=== PATIENT | female | born 1950 | race Two or more races ===

== ENCOUNTER 2017-06-05 14:52 | Emergency (ER) | payer OTHER ==
[~2017-06-05] VITALS: Ht 162.6 cm; Wt 80.0 kg
[~2017-06-05 14:52] MED LIST: DIOV160T60 PO; ESTR42.5V PV; NITR50CA27 PO; PRIL40CA PO; SYNT137T PO
[2017-06-05 15:03] VITALS: BP 129/70; PULSE 53; RESP 18; TEMP 97.8; O2SAT 99
[2017-06-05 15:51] VITALS: BP 168/81; PULSE 47; RESP 18; O2SAT 98
[2017-06-05] MEDS ORDERED: OMEP40CA2 PO (15:58)
[2017-06-05] MEDS ORDERED: LEVO.15 PO (15:58)
[2017-06-05] MEDS ORDERED: DIOV160T6 PO (15:58)
[2017-06-05] MEDS ORDERED: SODIUM CHLORIDE 0.9% FLUSH 10 ML FLUSH IVF PRN (16:00)
--- NOTE | 2017-06-05 16:51 | PD ---
HPI . High blood pressure Chief Complaint: Hypertension Time Seen by Provider: 15:44 Travel History International Travel<30 days: No Contact w/Intl Traveler<30days: No Traveled to known affect area: No History of Present Illness HPI This patient presents with chief complaint of high blood pressure. She states that she has been having intermittent pressure in her head. She has been checking her blood pressure at home and has found it to be elevated. She was reportedly at her manager of case's office today for a routine checkup and was found to have high blood pressure. She states that she was given 2 doses of clonidine and was sent to the emergency department for hypertensive emergency. She denies chest pain, shortness of breath, peripheral edema. She does not have any signs or symptoms of encephalopathy such as confusion. She has not noted any modifying factors. Her blood pressure has just been trending high for the last several weeks. PFSH Past Medical History Cardiovascular Problems: Yes High Cholesterol: Yes Diminished Hearing: Yes Hypertension: Yes Immunizations Current: Yes Thyroid Disease: Yes Tetanus Vaccination: Unknown Influenza Vaccination: No ?: Not Menopausal: Yes Past Surgical History Appendectomy: Yes Tonsillectomy: Yes Other Surgery: Yes (VOCAL CHORDS SURGERY ) Social History Alcohol Use: No Tobacco Use: No (quit 3 years ago ) Substance Use: No Allergies-Medications (Allergen,Severity, Reaction): Coded Allergies: ciprofloxacin (Unverified Allergy, Severe, Shortness of Breath, 06/05/17) hydrochlorothiazide (Unverified Allergy, Severe, Headache, 06/05/17) morphine (Unverified Allergy, Severe, Hallucinations, 06/05/17) Reported Meds & Prescriptions Reported Meds & Active Scripts Active Reported Omeprazole 40 Mg Cap 40 Mg PO DAILY Synthroid (Levothyroxine Sodium) 150 Mcg Tab 150 Mcg PO DAILY Diovan (Valsartan) 160 Mg Tab 160 Mg PO BID Review of Systems Except as stated in HPI: all other systems reviewed are Neg Eyes: No: Blurred Vision HENT: Positive: Headaches Cardiovascular: No: Chest Pain or Discomfort Respiratory: No: Shortness of Breath Musculoskeletal: No: Edema Physical Exam Narrative GENERAL: Awake and alert and in no acute distress. SKIN: warm/dry. Normal color and turgor. HEAD: Normocephalic. Atraumatic. EYES: Pupils equal and round. No scleral icterus. No injection or drainage. ENT: No nasal bleeding or discharge. Mucous membranes pink and moist. NECK: Trachea midline. Full range of motion without pain.. CARDIOVASCULAR: Regular rate and rhythm. Sounds normal. RESPIRATORY: No accessory muscle use. Clear to auscultation. Breath sounds equal bilaterally. GASTROINTESTINAL: Abdomen soft. Nontender. Bowel sounds present. Nondistended. MUSCULOSKELETAL: No obvious deformities. No peripheral edema. NEUROLOGICAL: Awake and alert. No obvious cranial nerve deficits. Motor grossly within normal limits. Normal speech. PSYCHIATRIC: Appropriate mood and affect; insight and judgment normal. Data Data Last Documented VS Vital Signs Date Time Temp Pulse Resp B/P (MAP) Pulse Ox O2 Delivery O2 Flow Rate FiO2 06/05/17 20:22 06/05/17 19:51 46 16 100 Room Air 06/05/17 15:03 97.8 Orders Orders Electrocardiogram (06/05/17 15:46) Basic Metabolic Panel (Bmp) (06/05/17 15:46) Complete Blood Count With Diff (06/05/17 15:46) Troponin I (06/05/17 15:46) Ecg Monitoring (06/05/17 15:46) Iv Access Insert/Monitor (06/05/17 15:46) Oximetry (06/05/17 15:46) Sodium Chloride 0.9% Flush (Ns Flush) (06/05/17 16:00) Ed Discharge Order (06/05/17 18:09) Labs Laboratory Tests Test 06/05/17 16:20 White Blood Count 7.4 TH/MM3 Red Blood Count 4.44 MIL/MM3 Hemoglobin 13.6 GM/DL Hematocrit 41.0 % Mean Corpuscular Volume 92.4 FL Mean Corpuscular Hemoglobin 30.7 PG Mean Corpuscular Hemoglobin Concent 33.3 % Red Cell Distribution Width 14.2 % Platelet Count 363 TH/MM3 Mean Platelet Volume 7.8 FL Neutrophils (%) (Auto) 53.7 % Lymphocytes (%) (Auto) 37.2 % Monocytes (%) (Auto) 5.0 % Eosinophils (%) (Auto) 2.6 % Basophils (%) (Auto) 1.5 % Neutrophils # (Auto) 4.0 TH/MM3 Lymphocytes # (Auto) 2.7 TH/MM3 Monocytes # (Auto) 0.4 TH/MM3 Eosinophils # (Auto) 0.2 TH/MM3 Basophils # (Auto) 0.1 TH/MM3 CBC Comment DIFF FINAL Differential Comment Blood Urea Nitrogen 11 MG/DL Creatinine 0.60 MG/DL Random Glucose 119 MG/DL Calcium Level 9.0 MG/DL Sodium Level 133 MEQ/L Potassium Level 3.9 MEQ/L Chloride Level 100 MEQ/L Carbon Dioxide Level 24.5 MEQ/L Anion Gap 9 MEQ/L Estimat Glomerular Filtration Rate 100 ML/MIN Troponin I LESS THAN 0.02 NG/ML MDM Medical Decision Making Medical Screen Exam Complete: Yes Emergency Medical Condition: Yes Interpretation(s) EKG shows a normal sinus rhythm with no acute ischemic changes. Differential Diagnosis My differential diagnosis of high blood pressure includes but is not limited to "white coat syndrome," anxiety, essential hypertension, hypertensive emergency. Narrative Course Patient reports that she was sent to us for hypertensive emergency. She is normotensive here. She has no signs or symptoms suggestive of a hypertensive emergency such as encephalopathy, chest pain, pulmonary edema acute peripheral edema. Labs have been ordered to rule out ACS. I anticipate discharge once these labs are back. CBC & BMP Diagram 06/05/17 16:20 Calcium Level 9.0 trop < 0.02 Diagnosis Primary Impression: Hypertension Qualified Codes: I10 - Essential (primary) hypertension Patient Instructions: Chronic Hypertension (DC), General Instructions Additional Instructions: Follow-up with your primary care provider to discuss blood pressure management Disposition: 01 DISCHARGE HOME Condition: Stable Elmira Patel MD Jun 05, 2017 16:51
[2017-06-05 17:06] LABS: BASOPHIL # 0.1 TH/MM3 (0-0.2); BASOPHIL % 1.5 % (0.0-2.0); EOSINOPHIL # 0.2 TH/MM3 (0-0.4); EOSINOPHIL % 2.6 % (0.0-4.0); HEMOGLOBIN 13.6 GM/DL (11.6-15.3); LYMPH % 37.2 % (9.0-44.0); LYMPHOCYTE # 2.7 TH/MM3 (1.0-4.8); MEAN CELL VOLUME 92.4 FL (80.0-100.0); MEAN CORPUSCULAR HEMOGLOBIN 30.7 PG (27.0-34.0); MEAN CORPUSCULAR HGB CONC 33.3 % (32.0-36.0); MEAN PLATELET VOLUME 7.8 FL (7.0-11.0); MONOCYTE # 0.4 TH/MM3 (0-0.9); NEUT % 53.7 % (16.0-70.0); PLATELET COUNT 363 TH/MM3 (150-450); RED BLOOD COUNT 4.44 MIL/MM3 (4.00-5.30); RED CELL DISTRIBUTION WIDTH 14.2 % (11.6-17.2); WHITE BLOOD COUNT 7.4 TH/MM3 (4.0-11.0)
[2017-06-05 17:27] LABS: BICARBONATE 24.5 MEQ/L (21.0-32.0); BLOOD UREA NITROGEN 11 MG/DL (7-18); CHLORIDE 100 MEQ/L (98-107); GLOMERULAR FILTRATION RATE 100 ML/MIN (>89); GLUCOSE,RANDOM 119 MG/DL (74-106); SODIUM (NA) 133 MEQ/L (136-145)
[2017-06-05 17:32] LABS: TROPONIN I LESS THAN 0.02 NG/ML (0.02-0.05)
--- NOTE | 2017-06-05 18:07 | PD ---
Physical Exam Date Seen by Provider: Jun 05, 2017 Time Seen by Provider: 18:05 Narrative Patient previously seen by Dr. Patel for question of hypertensive crisis. Labs ordered to rule out ACS. These are all negative. Patient is felt stable for discharge at this time. Patient can follow with her primary care physician. Data Data Last Documented VS Vital Signs Date Time Temp Pulse Resp B/P (MAP) Pulse Ox O2 Delivery O2 Flow Rate FiO2 06/05/17 15:51 47 18 168/81 (110) 98 Room Air 06/05/17 15:03 97.8 Orders Orders Electrocardiogram (06/05/17 15:46) Basic Metabolic Panel (Bmp) (06/05/17 15:46) Complete Blood Count With Diff (06/05/17 15:46) Troponin I (06/05/17 15:46) Ecg Monitoring (06/05/17 15:46) Iv Access Insert/Monitor (06/05/17 15:46) Oximetry (06/05/17 15:46) Sodium Chloride 0.9% Flush (Ns Flush) (06/05/17 16:00) Labs Laboratory Tests Test 06/05/17 16:20 White Blood Count 7.4 TH/MM3 Red Blood Count 4.44 MIL/MM3 Hemoglobin 13.6 GM/DL Hematocrit 41.0 % Mean Corpuscular Volume 92.4 FL Mean Corpuscular Hemoglobin 30.7 PG Mean Corpuscular Hemoglobin Concent 33.3 % Red Cell Distribution Width 14.2 % Platelet Count 363 TH/MM3 Mean Platelet Volume 7.8 FL Neutrophils (%) (Auto) 53.7 % Lymphocytes (%) (Auto) 37.2 % Monocytes (%) (Auto) 5.0 % Eosinophils (%) (Auto) 2.6 % Basophils (%) (Auto) 1.5 % Neutrophils # (Auto) 4.0 TH/MM3 Lymphocytes # (Auto) 2.7 TH/MM3 Monocytes # (Auto) 0.4 TH/MM3 Eosinophils # (Auto) 0.2 TH/MM3 Basophils # (Auto) 0.1 TH/MM3 CBC Comment DIFF FINAL Differential Comment Blood Urea Nitrogen 11 MG/DL Creatinine 0.60 MG/DL Random Glucose 119 MG/DL Calcium Level 9.0 MG/DL Sodium Level 133 MEQ/L Potassium Level 3.9 MEQ/L Chloride Level 100 MEQ/L Carbon Dioxide Level 24.5 MEQ/L Anion Gap 9 MEQ/L Estimat Glomerular Filtration Rate 100 ML/MIN Troponin I LESS THAN 0.02 NG/ML MDM Medical Record Reviewed: Yes Supervised Visit with AICHA: Yes Narrative Course Patient previously seen by Dr. Patel for question of hypertensive crisis. Labs ordered to rule out ACS. These are all negative. Patient is felt stable for discharge at this time. Patient can follow with her primary care physician. Diagnosis Primary Impression: Hypertension Qualified Codes: I10 - Essential (primary) hypertension Patient Instructions: General Instructions, Chronic Hypertension (DC) Additional Instruction: Follow-up with your primary care provider to discuss blood pressure management Disposition: 01 DISCHARGE HOME Condition: Stable Bhaskar Singleton Jun 05, 2017 18:07
[2017-06-05 18:45] VITALS: BP 154/85; PULSE 46; RESP 18; O2SAT 100
[2017-06-05 19:51] VITALS: BP 133/64; PULSE 46; RESP 16; O2SAT 100
--- NOTE | 2017-06-06 21:52 | EKG ---
Date Performed: 06/05/2017 Time Performed: 16:13:22 PTAGE: 67 years EKG: SINUS BRADYCARDIA BORDERLINE ECG NO PREVIOUS TRACING DOCTOR: Florentin Nicholas Interpretating Date/Time 06/06/2017 21:51:51
== END 2017-06-05 20:23 | disposition home or self-care (01) ==
LOC: NEPD 14:52
DX: I10 Essential (primary) hypertension (principal); R94.31 Abnormal electrocardiogram [ECG] [EKG]; H91.90 Unspecified hearing loss, unspecified ear; E78.00 Pure hypercholesterolemia, unspecified; Z88.5 Allergy status to narcotic agent
CPT/HCPCS: 80048; 84484; 85025; 93005; 99284